=== PATIENT | female | born 1945 | race Hispanic/Latino ===

== ENCOUNTER 2017-07-01 10:27 | Outpatient (CLI) | payer MEDICARE ==
[2017-07-01 10:48] LABS: Basophils % (Auto) 0.4 % (0.0-1.8); Eosinophils % (Auto) 0.3 % (0.0-4.3); Hematocrit 44.9 % (30.3-42.9); Hemoglobin 15.3 gm/dl (10.1-14.3); Mean Corpuscular HGB Conc 34 % (30-34); Mean Corpuscular Hemoglobin 30 pg (28-32); Mean Corpuscular Volume 89 fl (79-97); Platelet Count 220 K/mm3 (140-440); Red Blood Count 5.04 M/mm3 (3.65-5.03); White Blood Count 9.5 K/mm3 (4.5-11.0)
[2017-07-01 11:07] LABS: Anion Gap 19 mmol/L; BUN/Creatinine Ratio 48; Blood Urea Nitrogen 19 mg/dL (7-17); Calcium 9.8 mg/dL (8.4-10.2); Carbon Dioxide 27 mmol/L (22-30); Chloride 99.5 mmol/L (98-107); Glucose 138 mg/dL (65-100); Potassium 4.4 mmol/L (3.6-5.0); Sodium 141 mmol/L (137-145)
== END 2017-07-01 10:28 | disposition home or self-care (01) ==
LOC: LAB 10:27
PROVIDERS: ATTEND Psychiatry & Neurology Neurology
DX: Z51.81 Encounter for therapeutic drug level monitoring (principal)
CPT/HCPCS: 36415; 80048; 85025

== ENCOUNTER 2018-05-12 15:14 | Outpatient (CLI) | payer MEDICARE ==
--- NOTE | 2018-05-12 20:27 | XRay Report ---
FINAL REPORT PROCEDURE: XR SPINE SACRUM/COCCYX 2+V TECHNIQUE: Sacrum and coccyx radiographs, AP and lateral views. HISTORY: INJURY TAIL BONE COMPARISON: No prior studies are available for comparison. FINDINGS: Fracture(s): None. Bone mineralization: Normal. IMPRESSION: Normal Examination.
== END 2018-05-12 15:15 | disposition home or self-care (01) ==
LOC: XRAY 15:14
PROVIDERS: ATTEND Psychiatry & Neurology Neurology
DX: M53.3 Sacrococcygeal disorders, not elsewhere classified (principal)
CPT/HCPCS: 72220